=== PATIENT | female | born 1970 | race Asian ===

== ENCOUNTER 2018-09-02 10:59 | Emergency (ER) | payer SELFPAY ==
[~2018-09-02] VITALS: Ht 167.6 cm; Wt 81.6 kg
[2018-09-02 11:16] VITALS: Ht 167.6 cm; Wt 81.6 kg
[2018-09-02 11:44] LABS: BASOPHIL % 0.7 % (0-2); PLATELET COUNT 262 x10^3mcL (130-400); RED CELL DISTRIBUTION WIDTH 12.4 % (11.5-14.5)
[2018-09-02 11:48] LABS: CALCIUM 8.8 mg/dL (8.5-10.1); CARBON DIOXIDE 26.6 mmol/L (21-32); CHLORIDE SERUM 105 mmol/L (98-107); CREATININE SERUM 0.6 mg/dL (0.6-1.0); GFR1 > 60 mL/min; GLUCOSE SERUM 110 mg/dL (74-106); POTASSIUM SERUM 3.2 mmol/L (3.5-5.1); SODIUM SERUM 143 mmol/L (136-145)
[2018-09-02 11:52] LABS: ALBUMIN 3.6 g/dL (3.4-5.0); ALKALINE PHOSPHATASE 60 U/L (46-116); ALT/SGPT 27 U/L (14-59); AST/SGOT 13 U/L (15-37); BILIRUBIN TOTAL 0.5 mg/dL (0.20-1.00); CHOLESTEROL 158 mg/dL (<200); CHOLESTEROL/HDL RATIO 3.2; HDL CHOLESTEROL 50 mg/dL (40-60); LIPASE 62 IU/L (73-393); TRIGLYCERIDES 105 mg/dL (<150)
[2018-09-02 11:56] LABS: FREE T4 1.1 ng/dL (0.76-1.46); FREE THYROXINE INDEX 3.1 ug/dL (1.4-4.5); T4(THYROXINE) 8.8 ug/dL (4.7-13.3)
[2018-09-02 11:59] LABS: T3 TOTAL 0.99 ng/mL
[2018-09-02 12:05] LABS: UA SPECIFIC GRAVITY <=1.005 (1.005-1.035); microscopic required? YES; urine erythrocyte TRACE (NEGATIVE)
[2018-09-02 12:28] LABS: AMPHETAMINE QUAL UR NONE DETECTED (See below)
[2018-09-02 12:30] VITALS: BP 126/76
== END 2018-09-02 12:58 | disposition home or self-care (01) ==
LOC: ED 10:59
PROVIDERS: Specialist
DX: R00.2 Palpitations (principal); F43.0 Acute stress reaction
CPT/HCPCS: 83880; 84439; J7030; Q0092